=== PATIENT | male | born 1940 | race Caucasian/White ===

== ENCOUNTER 2017-02-22 06:14 | Emergency (ER) | payer MEDICARE, OTHER ==
[2017-02-22] MEDS ORDERED: ROCEPHIN 1 Gm-D5w 50 ml Bag** 1 G/50 ML IVPB IV STA (06:26)
--- NOTE | 2017-02-22 06:26 | ERPHSYRPT ---
- History of Present Illness Time Seen by Provider: 02/22/17 06:15 Source: patient, family ([facility]) Exam Limitations: no limitations Patient Subjective Stated Complaint: patient has been having nasal drainage, shortness of breath, sore throat and overall not feeling well x3 days Triage Nursing Assessment: pt alert and orientedx3, behavior approp for age, able to ambulate by self, gait is steady, pupils perrla2, nose red with drainage , throat red, lung sounds diminished lower bialteral lobes, expiratory wheeze upper lobes , bowel sounds present x4, hernia noted on abdomen to left of umbilicus. skin warm dry and intact, minimal edema in lower extremities,no other abnormalities noted. Physician History: FOR THE PAST 4 DAYS PT HAS HAD SINUS DRAINAGE AND A RUNNY NOSE; FOR THE PAST 2 DAYS A NON-PRODUCTIVE COUGH; FOR THE PAST 12 HOURS SHORTNESS OF AIR. PT ALSO C/ O CHRONIC ABDOMINAL PAIN, ABDOMINAL HERNIA AND BILATERAL FOOT SWELLING FOR YEARS. Allergies/Adverse Reactions: Penicillins Allergy (Verified 07/04/15 12:30) Home Medications: Alprazolam 0.5 mg [xanAX 0.5 MG] 0.5 mg PO TID 06/16/13 [History] Atorvastatin Calcium [Lipitor] 80 mg PO DAILY 06/16/13 [History] Esomeprazole Magnesium [Nexium] 40 mg PO DAILY 06/16/13 [History] Ezetimibe 10 mg [Zetia 10 MG] 10 mg PO DAILY 06/16/13 [History] Glipizide [Glipizide Xl] 10 mg PO DAILY 06/16/13 [History] Insulin Glargine [Lantus Insulin] 40 unit SQ BID 06/16/13 [History] Losartan Potassium 100 mg PO DAILY 06/16/13 [History] Memantine HCl [Namenda] 10 mg PO BID 06/16/13 [History] Metformin HCl 500 mg [Glucophage 500 MG] 500 mg PO TID 06/16/13 [History] Nitroglycerin 0.4 mg Tablet [Nitrostat 0.4 MG Tablet] 0.4 mg SL UD [History] Metoprolol Succinate 50 mg PO DAILY 06/17/13 [History] Hx Tetanus, Diphtheria Vaccination/Date Given: Yes Hx Influenza Vaccination/Date Given: Yes Hx Pneumococcal Vaccination/Date Given: Yes Immunizations Up to Date: Yes - Review of Systems Constitutional: No Fever Ears, Nose, & Throat: Nose Discharge, Sinus Drainage Respiratory: Cough, Dyspnea Cardiac: No Chest Pain Abdominal/Gastrointestinal: Abdominal Pain (CHRONIC ABDOMINAL PAIN FOR YEARS), Other (ABDOMINAL HERNIA FOR YEARS) Musculoskeletal: Other (BILATERAL FOOT SWELLING FOR YEARS) All Other Systems: Reviewed and Negative - Past Medical History Pertinent Past Medical History: Yes Neurological History: No Pertinent History ENT History: No Pertinent History Cardiac History: Coronary Artery Disease, Hypertension Endocrine Medical History: Diabetes Type II Musculoskeletal History: No Pertinent History GI Medical History: Cirrhosis History: No Pertinent History Psycho-Social History: No Pertinent History - Past Surgical History Past Surgical History: Yes Cardiac: CABG Gastrointestinal: Appendectomy, Hernia Repair Genitourinary: Other Male Surgical History: Prostate Surgery Other Surgical History: bladder cancer surgery - Social History Smoking Status: Former smoker Exposure to second hand smoke: Yes Drug Use: none Patient Lives Alone: Yes - Nursing Vital Signs Nursing Vital Signs: Initial Vital Signs Temperature 97.4 F 02/22/17 06:15 Pulse Rate 89 02/22/17 06:15 Respiratory Rate 18 02/22/17 06:15 Blood Pressure 162/88 02/22/17 06:15 O2 Sat by Pulse Oximetry 94 L 02/22/17 06:15 Pain Scale Pain Intensity 4 - Physical Exam General Appearance: alert Eye Exam: PERRL/EOMI Ears, Nose, Throat Exam: moist mucous membranes, pharyngeal erythema, other ( RHINORRHEA; NASAL TURBINATES ERYTHEMATOUS AND MILDLY EDEMATOUS.) Neck Exam: normal inspection Respiratory Exam: wheezing (MINIMAL EXPIRATORY WHEEZING OVER POSTERIOR BASES.) Cardiovascular Exam: normal heart sounds Gastrointestinal/Abdomen Exam: soft, normal bowel sounds, hernia (VENTRAL) Back Exam: normal range of motion Extremity Exam: pedal edema (MINIMAL PEDAL EDEMA BILATERALLY) Neurologic Exam: alert, cooperative Skin Exam: warm, dry SpO2 Interpretation: normal SpO2: 97 Oxygen Delivery: Room Air - Course Nursing assessment & vital signs reviewed: Yes EKG Interpreted by Me: RATE (84), Sinus Rhythm, NORMAL AXIS, Other ( INTRAVENTRICULAR CONDUCTION DELAY) - Radiology Exams Chest X-ray Interpretation: Interpreted by me (CM; MILD CONGESTIVE CHANGES.) Ordered Tests: Active Orders 24 hr Category Date Time Status [facility] STAT Care 02/22/17 06:25 Active EKG-ER Only STAT Care 02/22/17 06:23 Active IV Insertion STAT Care 02/22/17 06:23 Active Oxygen-ED Only NASAL CANNULA 2 lpm Care 02/22/17 06:23 Active CHEST 2 VIEWS (PA AND LAT) Stat Exams 02/22/17 06:24 Ordered AMYLASE Stat Lab 02/22/17 06:30 Completed BLOOD CULTURE Stat Lab 02/22/17 06:35 Received CBC W DIFF Stat Lab 02/22/17 06:30 Completed CMP Stat Lab 02/22/17 06:30 Completed CULTURE,SPUTUM Stat Lab 02/22/17 06:28 Uncollected LIPASE Stat Lab 02/22/17 06:30 Completed MAGNESIUM Stat Lab 02/22/17 06:30 Completed PROTIME WITH INR Stat Lab 02/22/17 06:30 Completed PTT Stat Lab 02/22/17 06:30 Completed TROPONIN Q3H Lab 02/22/17 06:30 Completed TROPONIN Q3H Lab 02/22/17 09:30 Ordered TROPONIN Q3H Lab 02/22/17 12:30 Ordered TROPONIN Q3H Lab 02/22/17 15:30 Ordered TROPONIN Q3H Lab 02/22/17 18:30 Ordered Respiratory Nebulizer STAT RT 02/22/17 06:41 Completed Medication Summary Generic Name Dose Route Start Last Admin Trade Name Freq PRN Reason Stop Dose Admin Sodium Chloride 1,000 mls @ 100 mls/hr 02/22/17 06:30 02/22/17 07:02 Sodium Chloride 0.9% 1000 Ml IV 03/24/17 06:29 100 mls/hr .Q10H RAISSA Administration Discontinued Medications Generic Name Dose Route Start Last Admin Trade Name Freq PRN Reason Stop Dose Admin Azithromycin 500 mg 02/22/17 06:27 02/22/17 07:03 Zithromax 250 Mg Tablet PO 02/22/17 06:28 500 mg STAT ONE Administration Azithromycin Confirm 02/22/17 06:58 Zithromax 250 Mg Tablet Administered 02/22/17 06:59 Dose 500 mg .ROUTE .STK-MED ONE Ceftriaxone Sodium/Dextrose 1 g in 50 mls @ 100 mls/hr 02/22/17 06:26 07:02 Rocephin 1 Gm-D5w 50 Ml Bag IV 02/22/17 06:55 100 mls/hr STAT STA Administration Ceftriaxone Sodium/Dextrose Confirm 02/22/17 06:58 Rocephin 1 Gm-D5w 50 Ml Bag Administered 02/22/17 06:59 Dose 1 g in 50 mls @ ud IV .STK-MED ONE Levalbuterol HCl 1.25 mg 02/22/17 06:27 02/22/17 06:38 Xopenex 1.25 Mg/0.5 Ml Ud Nebule IH 02/22/17 06:28 1.25 mg STAT ONE Administration Levalbuterol HCl Confirm 02/22/17 06:34 Xopenex 1.25 Mg/0.5 Ml Ud Nebule Administered 02/22/17 06:35 Dose 1.25 mg IH .STK-MED ONE Sodium Chloride Confirm 02/22/17 06:35 Sodium Chloride 3 Ml Ud Nebules Administered 02/22/17 06:36 Dose 3 ml IH .STK-MED ONE Lab/Rad Data: Laboratory Result Diagrams 02/22/17 06:30 02/22/17 06:30 Laboratory Results 02/22/17 02/22/17 02/22/17 Range/Units 06:30 06:30 06:30 WBC (4.0-10.5) K/mm3 RBC (4.1-5.6) M/mm3 Hgb (12.5-18.0) gm/dl Hct (42-50) % MCV (78-100) fl MCH (26-32) pg MCHC (32-36) g/dl RDW (11.5-14.0) % Plt Count (150-450) K/mm3 MPV (6-9.5) fl Gran % (36.0-66.0) % Lymphocytes % (24.0-44.0) % Monocytes % (0.0-12.0) % Eosinophils % (0.00-5.0) % Basophils % (0.0-0.4) % Basophils # (0-0.4) INR 1.16 (0.8-3.0) APTT 35.0 (24.1-36.1) SECONDS Sodium 143 (136-145) mEq/L Potassium 3.8 (3.5-5.1) mEq/L Chloride 104 (98-107) mEq/L Carbon Dioxide 27.5 (21-32) mEq/L Anion Gap 15.7 H (5-15) MEQ/L BUN 14 (9-20) mg/dL Creatinine 1.00 (0.55-1.30) mg/dl Estimated GFR > 60 ML/MIN Glucose 200 H (70-110) MG/DL Calcium 8.9 (8.5-10.1) mg/dL Magnesium 2.0 (1.8-2.4) mg/dL Total Bilirubin 1.00 (0.2-1.0) mg/dL AST 34 (15-37) U/L ALT 44 (12-78) U/L Alkaline Phosphatase 96 (46-116) U/L Troponin I 0.087 H* (0.000-0.056) ng/ml Serum Total Protein 7.2 (6.4-8.2) gm/dL Albumin 3.6 (3.4-5.0) g/dL Amylase 36 (25-115) U/L Lipase 99 (73-393) U/L 02/22/ Range/Units 06:30 WBC 9.9 (4.0-10.5) K/mm3 RBC 4.41 (4.1-5.6) M/mm3 Hgb 13.0 (12.5-18.0) gm/dl Hct 40.4 L (42-50) % MCV 91.6 (78-100) fl MCH 29.5 (26-32) pg MCHC 32.2 (32-36) g/dl RDW 14.4 H (11.5-14.0) % Plt Count 217 (150-450) K/mm3 MPV 11.0 H (6-9.5) fl Gran % 75.0 H (36.0-66.0) % Lymphocytes % 12.4 L (24.0-44.0) % Monocytes % 10.4 (0.0-12.0) % Eosinophils % 1.7 (0.00-5.0) % Basophils % 0.5 (0.0-0.4) % Basophils # 0.05 (0-0.4) INR (0.8-3.0) APTT (24.1-36.1) SECONDS Sodium (136-145) mEq/L Potassium (3.5-5.1) mEq/L Chloride (98-107) mEq/L Carbon Dioxide (21-32) mEq/L Anion Gap (5-15) MEQ/L BUN (9-20) mg/dL Creatinine (0.55-1.30) mg/dl Estimated GFR ML/MIN Glucose (70-110) MG/DL Calcium (8.5-10.1) mg/dL Magnesium (1.8-2.4) mg/dL Total Bilirubin (0.2-1.0) mg/dL AST (15-37) U/L ALT (12-78) U/L Alkaline Phosphatase (46-116) U/L Troponin I (0.000-0.056) ng/ml Serum Total Protein (6.4-8.2) gm/dL Albumin (3.4-5.0) g/dL Amylase (25-115) U/L Lipase (73-393) U/L - Progress Discussed with : Other (SPOKE WITH DR LAI([id number]) WHO ACCEPTED PT FOR TRANSFER TO [facility] VIA AMBULANCE.) - Departure Time of Disposition: 07:30 Departure Disposition: Transfer ([facility]) Clinical Impression: DYSPNEA, ELEVATED TROPONIN I, SINUSITIS, PHARYNGITIS, CAD, HTN, DM, CIRRHOSIS Condition: Stable Critical Care Time: No Referrals: DESIRAE CASTELLANOS [Primary Care Provider] -
[2017-02-22] MEDS ORDERED: Zithromax 250 MG TABLET PO ONE (06:27)
[2017-02-22] MEDS ORDERED: Xopenex 1.25 MG/0.5 ML UD NEBULE IH ONE ×2 (06:27→06:34)
[2017-02-22] MEDS ORDERED: Sodium Chloride 0.9% 1000 ML 1,000 ML IV SCH (06:30)
[2017-02-22] MEDS ORDERED: Sodium Chloride 3 ML UD NEBULES IH ONE (06:35)
[2017-02-22 06:44] LABS: BASOPHIL % 0.5 % (0.0-0.4); Eosinophil % 1.7 % (0.00-5.0); Lymphocytes % 12.4 % (24.0-44.0); Mean Cell Volume 91.6 fl (78-100); Mean Corpuscular Hemoglobin 29.5 pg (26-32); Monocytes % 10.4 % (0.0-12.0); Platelet Count 217 K/mm3 (150-450); Red Blood Count 4.41 M/mm3 (4.1-5.6); Red Cell Distribution Width 14.4 % (11.5-14.0); White Blood Count 9.9 K/mm3 (4.0-10.5)
[2017-02-22] MEDS ORDERED: Zithromax 250 MG TABLET ONE (06:58)
[2017-02-22] MEDS ORDERED: ROCEPHIN 1 Gm-D5w 50 ml Bag** 1 G/50 ML IVPB IV ONE (06:58)
[2017-02-22] MEDS ORDERED: Sodium Chloride 0.9% 1000 ML 1,000 ML ONE (06:58)
[2017-02-22 07:01] LABS: ALBUMIN 3.6 g/dL (3.4-5.0); ALKALINE PHOSPHATASE 96 U/L (46-116); ANION GAP 15.7 MEQ/L (5-15); BLOOD UREA NITROGEN 14 mg/dL (9-20); CHLORIDE 104 mEq/L (98-107); Carbon Dioxide 27.5 mEq/L (21-32); Glucose 200 MG/DL (70-110); INR 1.16 (0.8-3.0); LIPASE 99 U/L (73-393); PROTIME 12.9 SECONDS (8.83-12.87); Potassium 3.8 mEq/L (3.5-5.1); SGOT/AST 34 U/L (15-37); SGPT/ALT 44 U/L (12-78); SODIUM 143 mEq/L (136-145); Total Protein 7.2 gm/dL (6.4-8.2)
[2017-02-22] MEDS ORDERED: BABY ASPIRIN 81 MG CHEW PO ONE (07:30)
[2017-02-22] MEDS ORDERED: Lasix 40 MG/4 ML IV ONE (07:30)
[2017-02-22] MEDS ORDERED: BABY ASPIRIN 81 MG CHEW ONE (07:33)
[2017-02-22] MEDS ORDERED: Lasix 40 MG/4 ML ONE (07:33)
[2017-02-22 08:18] VITALS: BP 125/72; PULSE 87; O2SAT 98
--- NOTE | 2017-02-22 08:21 | XRAY ---
Indication: Short of breath. Comparison: January 04, 2012. PA/lateral chest now demonstrates borderline cardiomegaly with central vascular prominence. No infiltrate, consolidation, or large effusion. Bony thorax intact again with sternotomy wires. Impression: Borderline cardiomegaly. Negative for acute pneumonic process or CHF.
== END 2017-02-22 08:20 | disposition home or self-care (01) ==
LOC: ED 06:14
DX: R06.00 Dyspnea, unspecified (principal); R79.89 Other specified abnormal findings of blood chemistry; J32.9 Chronic sinusitis, unspecified; J02.9 Acute pharyngitis, unspecified; I25.10 Atherosclerotic heart disease of native coronary artery without angina pectoris; I10 Essential (primary) hypertension; E11.9 Type 2 diabetes mellitus without complications; K74.60 Unspecified cirrhosis of liver; Z79.84 Long term (current) use of oral hypoglycemic drugs; Z79.4 Long term (current) use of insulin; Z79.899 Other long term (current) drug therapy; R10.9 Unspecified abdominal pain; G89.29 Other chronic pain; K46.9 Unspecified abdominal hernia without obstruction or gangrene
CPT/HCPCS: 36000; 36415; 71020; 80053; 82150; 83690; 83735; 84484; 85025; 85610; 85730; 87040; 93005; 93041; 94640; 96360; 96361; 96365; 96374; 99285; J0696; J1940; A9270-GY